=== PATIENT | male | born 1975 | race Caucasian/White ===

== ENCOUNTER 2018-12-02 03:06 | Emergency (ER) | payer OTHER ==
[2018-12-02] MEDS: CEFTRIAXONE 1 GM INJ IM (03:57)
[2018-12-02] MEDS: DEXAMETHASONE 10 MG/ML 1 ML INJ IM (03:57)
[2018-12-02] MEDS: FAMOTIDINE 20 MG TAB PO (03:57)
[2018-12-02] MEDS: TRIMETHOPRIM/SULFAMETHOX (DS) TAB PO (03:57)
[2018-12-02] MEDS: DIPHENHYDRAMINE 25 MG CAP PO (03:57)
== END 2018-12-02 04:12 | disposition home or self-care (01) ==
LOC: FTE 03:06
DX: L01.00 Impetigo, unspecified (principal); J45.909 Unspecified asthma, uncomplicated; F17.210 Nicotine dependence, cigarettes, uncomplicated; L50.9 Urticaria, unspecified; L08.9 Local infection of the skin and subcutaneous tissue, unspecified
CPT/HCPCS: 96372; 99284-25; J0696